=== PATIENT | female | born 1955 | race African-American/Black ===

== ENCOUNTER 2017-05-19 01:36 | Emergency (ER) | payer OTHER ==
[~2017-05-19] VITALS: Ht 175.3 cm; Wt 57.0 kg
[2017-05-19] MEDS ORDERED: ONDANSETRON HCL 4MG/2ML VIAL IV STA (03:03)
[2017-05-19] MEDS ORDERED: SODIUM CHLORIDE 0.9% 1,000 ML IV ONE (03:03)
[2017-05-19] MEDS ORDERED: MORPHINE SULFATE 2 MG/ML CPJ (NOT FOR IM USE) IV ONE (03:15)
[2017-05-19 03:32] LABS: BASOPHILS % 0.6 % (0.0-2.0); EOSINOPHILS % 0.4 % (0.0-5.0); HEMATOCRIT. 38.6 % (36.0-48.0); HEMOGLOBIN. 12.7 g/dL (12.0-16.0); LYMPHOCYTES % 54.7 % (20.0-50.0); MEAN PLATELET VOLUME 8.9 fl (7.4-10.4); MONOCYTES % 9.6 % (2.0-8.0); NEUTROPHILS % 34.7 % (40.0-76.0); PLATELET 124 x1000/uL (130-400); RED BLOOD CELL COUNT 5.29 mill/uL (4.2-5.4); RED CELL DISTRIBUTION WIDTH 14.3 % (11.6-14.6)
[2017-05-19 03:33] LABS: CLARITY URINE CLEAR (CLEAR); COLOR URINE YELLOW (YELLOW); GLUCOSE URINE NEGATIVE (NEGATIVE); KETONES URINE NEGATIVE (NEGATIVE); LEUKOCYTE ESTERASE URINE TRACE (NEGATIVE); NITRITE URINE NEGATIVE (NEGATIVE); OCCULT BLOOD URINE NEGATIVE (NEGATIVE); PH URINE 6.5 (4.5-8.0); PROTEIN URINE NEGATIVE (NEGATIVE); SPECIFIC GRAVITY URINE 1.008 (1.005-1.030); UROBILINOGEN URINE 0.2 E.U./dL (0.2-1.0)
[2017-05-19 03:44] LABS: *AMPHETAMINES SCREEN URINE NEGATIVE (NEGATIVE); *BARBITURATES SCREEN URINE NEGATIVE (NEGATIVE); *BENZODIAZEPINES SCREEN URINE NEGATIVE (NEGATIVE); *COCAINE SCREEN URINE NEGATIVE (NEGATIVE); CANNABINOID URINE SCREEN NEGATIVE (NEGATIVE); METHADONE URINE SCREEN NEGATIVE (NEGATIVE); OPIATES URINE SCREEN NEGATIVE (NEGATIVE); PHENCYCLIDINE URINE SCREEN NEGATIVE (NEGATIVE)
[2017-05-19 03:49] LABS: CARBON DIOXIDE 24 mEq/L (21-32); CHLORIDE 105 mEq/L (98-107)
[2017-05-19 05:30] VITALS: BP 123/87
== END 2017-05-19 06:16 | disposition home or self-care (01) ==
LOC: ER 03:10
DX: K80.70 Calculus of gallbladder and bile duct without cholecystitis without obstruction (principal); R10.9 Unspecified abdominal pain; B19.20 Unspecified viral hepatitis C without hepatic coma; Z88.6 Allergy status to analgesic agent
CPT/HCPCS: 36415; 74176; 80053; 80305; 81001; 83690; 85025; 96361; 96374; 96375; 99285; J2270; J2405; J7030; Z7610

== ENCOUNTER 2019-05-17 18:35 | Emergency (ER) | payer SELFPAY ==
[~2019-05-17] VITALS: Ht 175.3 cm; Wt 53.0 kg
[2019-05-17 21:46] VITALS: BP 172/99
== END 2019-05-17 21:46 | disposition home or self-care (01) ==
LOC: ER 18:41
DX: L84 Corns and callosities (principal); E11.9 Type 2 diabetes mellitus without complications; Z88.6 Allergy status to analgesic agent; Z98.890 Other specified postprocedural states; Z86.19 Personal history of other infectious and parasitic diseases; Z87.891 Personal history of nicotine dependence
CPT/HCPCS: 99281

== ENCOUNTER 2021-06-27 19:46 | Emergency (ER) | payer MEDICARE ==
[~2021-06-27] VITALS: Ht 167.6 cm; Wt 50.0 kg
[2021-06-27] MEDS ORDERED: CLIN-116 MT (23:44)
[2021-06-27] MEDS ORDERED: TOPUD MT (23:44)
[2021-06-27] MEDS ORDERED: CIPR750T4 MT (23:44)
[2021-06-27] MEDS ORDERED: LEVOFLOXACIN 250MG TABLET PO ONE (23:45)
[2021-06-27] MEDS ORDERED: CLINDAMYCIN HCL 150MG CAPSULE PO SCH (23:45)
[2021-06-28 02:45] VITALS: BP 140/70
== END 2021-06-28 03:17 | disposition home or self-care (01) ==
LOC: ER 19:46
DX: E11.621 Type 2 diabetes mellitus with foot ulcer (principal); L03.116 Cellulitis of left lower limb; L97.421 Non-pressure chronic ulcer of left heel and midfoot limited to breakdown of skin; R03.0 Elevated blood-pressure reading, without diagnosis of hypertension; Z79.4 Long term (current) use of insulin
CPT/HCPCS: 73630; 99283

== ENCOUNTER 2021-06-28 08:38 | Emergency (ER) | payer MEDICARE ==
[~2021-06-28] VITALS: Ht 162.6 cm; Wt 52.0 kg
[~2021-06-28 08:38] MED LIST: CIPR750T4 MT; CLIN-116 MT; TOPUD MT
[2021-06-28 08:54] VITALS: BP 121/56
[2021-06-28] MEDS ORDERED: CLINDAMYCIN HCL 150MG CAPSULE PO SCH (15:15)
[2021-06-28] MEDS ORDERED: LEVOFLOXACIN 250MG TABLET PO ONE (15:15)
== END 2021-06-28 19:11 | disposition home or self-care (01) ==
LOC: ER 08:38
DX: Z48.00 Encounter for change or removal of nonsurgical wound dressing (principal); E11.621 Type 2 diabetes mellitus with foot ulcer; L97.529 Non-pressure chronic ulcer of other part of left foot with unspecified severity; L03.116 Cellulitis of left lower limb; M85.872 Other specified disorders of bone density and structure, left ankle and foot
CPT/HCPCS: 99283